=== PATIENT | male | born 1985 ===

== ENCOUNTER 2025-08-03 12:35 | Emergency (ER) | payer SELFPAY | END 2025-08-03 13:31 | disposition home or self-care (01) | LOC: MW.ED 12:35 → MERGE 12:35 → MW.ED 13:31 | DX: S61.211A Laceration without foreign body of left index finger without damage to nail, initial encounter (principal); Z88.6 Allergy status to analgesic agent; Z88.8 Allergy status to other drugs, medicaments and biological substances; Z79.899 Other long term (current) drug therapy; Z75.3 Unavailability and inaccessibility of health-care facilities; W26.8XXA Contact with other sharp object(s), not elsewhere classified, initial encounter | CPT/HCPCS: 12001; 99282; J2003; 99283 ==